=== PATIENT | male | born 1955 | race Caucasian/White ===

== ENCOUNTER → 2020-09-08 18:14 | Outpatient (CLI) | payer MEDICARE, SELFPAY ==
[2020-09-08 19:32] LABS: Basophils % 0.3 % (0.1-2.0); Eosinophils % 0.1 % (0.1-12.0); Hemoglobin 15.8 g/dL (14.1-18.0); Lymphocytes # 0.8 K/mm3 (0.7-4.5); Lymphocytes % 12.7 % (10-50); Mean Corpuscular Hemoglobin 31.6 pg (27.0-31.2); Mean Corpuscular Volume 95.9 fl (80-94); Mean Platelet Volume 9.3 fl (7.4-10.4); Monocytes # 0.3 K/mm3 (0.1-1.0); Monocytes % 5.1 % (1.7-9.3); Neutrophils # 5.2 K/mm3 (1.8-7.8); Neutrophils % 81.8 % (37.0-80.0); Platelet Count 204 K/mm3 (142-424); Red Blood Count 5.01 M/mm3 (4.60-6.20); Red Cell Distribution Width 14.7 % (11.5-17.5); White Blood Count 6.4 K/mm3 (4.8-10.8)
[2020-09-08 19:46] LABS: Alanine Aminotransferase 23 U/L (12-78); Albumin Level 4.2 g/dl (3.5-5.0); Albumin/Globulin Ratio 1.8 (1.1-1.8); Alkaline Phosphatase 80 U/L (38-126); Anion Gap 16.6 mEq/L (5-15); Aspartate Amino Transferase 22 U/L (17-59); Bilirubin,Total 0.7 mg/dl (0.2-1.3); Blood Urea Nitrogen 16 mg/dl (9-20); Carbon Dioxide 24 mmol/L (22.0-30.0); Chloride 103 mmol/L (98-107); Chol/HDL Ratio 3.6 (1-3.5); Cholesterol 130 mg/dl (140-200); Estimated Glomerular Filt Rate 96 ml/min (>60); GFR (African American) 117 ML/MIN (>60); Globulin 2.3 g/dL (1.3-3.2); Glucose 147 mg/dl (74-100); HDL Cholesterol 36 mg/dl (40-60); Potassium 4.6 mmoL/L (3.5-5.1); Sodium 139 mmol/L (136-145); Total Protein,Serum 6.5 g/dl (6.3-8.2); Triglycerides 245 mg/dl (30-150); VLDL Cholesterol 49 mg/dL (0-40)
[2020-09-08 19:57] LABS: Direct LDL Cholesterol 69.76 mg/dL (100-129)
== END ==
PROVIDERS: Visit Provider Internal Medicine Adolescent Medicine
DX: I25.10 Atherosclerotic heart disease of native coronary artery without angina pectoris (principal); I10 Essential (primary) hypertension
CPT/HCPCS: 80053; 80061; 85025

== ENCOUNTER → 2021-03-23 13:12 | Outpatient (CLI) | payer MEDICARE, OTHER, SELFPAY ==
--- NOTE | 2021-03-23 13:31 | XR_ITS ---
FINAL REPORT CLINICAL HISTORY: RIGHT SHOULDER PAIN for 1 month, no known injury FINDINGS: RIGHT SHOULDER Three views demonstrate no acute fracture or dislocation. There are [id number] hypertrophic changes of the acromioclavicular joint. The soft tissues are unremarkable. IMPRESSION: Mild to moderate hypertrophic changes of the acromioclavicular joint. Reviewed, Interpreted and Dictated by Reji Weinberg MD Transcribed by Nicolasa Woodard Authenticated by Reji Weinberg MD on 03/23/2021 03:39:01 PM [facility]
--- NOTE | 2021-03-23 13:31 | XR_ITS ---
FINAL REPORT CLINICAL HISTORY: LEFT SHOULDER PAIN for 1 month, no known injury FINDINGS: LEFT SHOULDER 3 views of the left shoulder were obtained. There is no acute fracture or dislocation. There are minimal hypertrophic changes at the glenohumeral joint. There is osteophyte formation along the undersurface of the acromion. Soft tissues are unremarkable. IMPRESSION: Hypertrophic changes as described. Reviewed, Interpreted and Dictated by Reji Weinberg MD Transcribed by Nicolasa Woodard Authenticated by Reji Weinberg MD on 03/23/2021 03:39:[address] [facility]
== END ==
PROVIDERS: PCP Internal Medicine Adolescent Medicine; Visit Provider Internal Medicine Adolescent Medicine
DX: M25.512 Pain in left shoulder (principal); M25.511 Pain in right shoulder
CPT/HCPCS: 73030

== ENCOUNTER 2021-06-30 11:00 | Outpatient (RCR) | payer MEDICARE, OTHER, SELFPAY | END 2021-07-30 12:09 | disposition home or self-care (01) | LOC: PT.CARL 11:00 | PROVIDERS: PCP Internal Medicine Adolescent Medicine; Visit Provider Family Medicine | DX: M19.012 Primary osteoarthritis, left shoulder (principal); M19.011 Primary osteoarthritis, right shoulder | CPT/HCPCS: 97110; 97163 ==

== ENCOUNTER 2021-11-25 22:57 | Emergency (ER) | payer MEDICARE, OTHER, SELFPAY ==
[2021-11-25 22:59] VITALS: BP 129/87; PULSE 71; RESP 18; TEMP 36.6; O2SAT 95; BMI 26.3
--- NOTE | 2021-11-26 00:08 | HMH.EDABDPAI ---
Discharge Plan Disposition Chief Complaint: Abdominal Pain Prescriptions Prescriptions: No Action atorvastatin 80 mg tablet 80 mg PO DAILY azathioprine 50 mg tablet 50 mg PO DAILY valacyclovir 500 mg tablet 500 mg PO TID Label Comments: TAKE 1 TABLET 3 TIMES EACH DAY FOR 7 DAYS lisinopril 5 mg tablet 5 mg PO DAILY gabapentin 100 mg capsule 100 mg PO TID Label Comments: TAKE 1 CAPSULE 3 TIMES EACH DAY FOR PAIN mesalamine 1,000 mg suppository 1,000 mg [place] HS mesalamine 800 mg tablet,delayed release (DR/EC) See Rx Instructions .ROUTE .COMPLEX Rx Instructions: take (3) tab in morning and (2) tab at bedtime Referrals Follow up/Referrals: Shoaib Hernandez MD [Primary Care Provider] - See instructions Clinical Impressions Clinical Impression: Abdominal pain Instructions Patient Instructions: DI for Acute Abdominal Pain, Acute Abdominal Pain Discharge ED Provider: Christopher Shook Abdominal Pain HPI General Chief Complaint: Abdominal Pain Stated Complaint: bruised and sharp pain in adm no accident Time Seen by Provider: 11/26/21 00:08 Mode of Arrival: Family Vehicle Source of Information: Patient and Medical Record Limitations: No Limitations Description of Symptoms (Recalled from ER Triage Doc. by RN): Pt c/o RLQ ABD pain that sometimes radiates to R lower back. States he was dx with Shingles to this area 1 wk ago. Pt denies any previous abd surgeries. Pt has completed his course of acyclovir but the gabapentin isn't cutting this pain now . Pt & his concerned that pt's abd is distended and swollen . Denies any n/v/d. ABD is soft. Mild tenderness noted on palpation. Denies fever or chills. History of Present Illness HPI narrative: acute onset of rt flank pain noted today - has hx of recent shingles complaint: flank pain Onset (ago): day(s) Consistency: constant Location: RLQ Severity: moderate Radiation: R flank Associated symptoms: denies other symptoms Related Data Home Medications Medication Instructions Recorded Confirmed atorvastatin 80 mg tablet 80 mg PO DAILY High cholesterol 11/25/21 11/26/21 azathioprine 50 mg tablet 50 mg PO DAILY . 11/25/21 11/26/21 gabapentin 100 mg capsule 100 mg PO TID shingles pain 11/25/21 11/26/21 lisinopril 5 mg tablet 5 mg PO DAILY High blood pressure 11/25/21 11/26/21 mesalamine 1,000 mg rectal 1,000 mg [place] HS UC 11/25/21 11/26/21 suppository mesalamine 800 mg tablet,delayed See Rx Instructions .Route 11/25/21 11/26/21 release .COMPLEX UC valacyclovir 500 mg tablet 500 mg PO TID shingles for 1 wk 11/25/21 11/26/21 Allergies Allergy/AdvReac Type Severity Reaction Status Date / Time No Known Allergies Allergy Verified 11/25/21 23:59 PFSH PFSH Social History Smoking Status: Never smoker alcohol intake: never current occupational status: employed Travel in the last 8 weeks: None ROS Obtained: Yes All systems reviewed & no additional complaints except as documented Physical Exam General General appearance: alert Head Head exam: normocephalic Eye Eye exam: Present PERRL and EOMI ENT ENT exam: Present mucous membranes moist Neck Neck exam: Present trachea midline Respiratory Respiratory exam: Present normal lung sounds bilaterally Cardiovascular Cardiovascular exam: Present regular rate Abdominal Exam Abdominal exam: Present soft and other (sl distention rt flank ) Extremities Exam Extremities exam: Present full ROM Back Exam Back exam: Absent CVA tenderness (R) Neurological Exam Neurological exam: Present alert, oriented X3 and CN II-XII intact Psychiatric Psychiatric exam: Present normal affect Skin Skin exam: Present rash (resolving shingles ) Medical Decision Making Medical Records Medical records reviewed: Yes I reviewed the patient's medical records. Tyshawn Inquiry Pt receiving controlled substance: No Vital Signs: 11/25/21 22:59 Temperature
--- NOTE | 2021-11-26 00:11 | CT_ITS ---
PROCEDURE INFORMATION: Exam: CT Abdomen And Pelvis With Contrast Exam date and time: 11/26/2021 12:56 AM Age: 66 years old Clinical indication: Abdominal pain; Patient HX: PT C/O rlq/right flank pain; Additional info: Rlq adb pain TECHNIQUE: Imaging protocol: Computed tomography of the abdomen and pelvis with contrast. Radiation optimization: All CT scans at this facility use at least one of these dose optimization techniques: automated exposure control; mA and/or kV adjustment per patient size (includes targeted exams where dose is matched to clinical indication); or iterative reconstruction. Contrast material: ISOVUE; Contrast volume: 75 ml; Contrast route: IV; COMPARISON: No relevant prior studies available. FINDINGS: Lungs: Calcified granulomas within the hilar structures and lung bases measuring less than 1 cm in size. Scarring and atelectasis in the lung bases. Heart: Heart is upper limits normal in size. Diaphragm: Sliding hiatal hernia. Liver: Liver is diffusely hypoattenuating. Low-density lesions in the left lobe of the liver may be benign or malignant. There are no comparison studies and follow-up is recommended. Punctate calcified granulomas within the liver. Gallbladder and bile ducts: Normal. No calcified stones. No ductal dilation. Pancreas: Normal. No ductal dilation. Spleen: Punctate calcified granulomas within the otherwise unremarkable spleen. Adrenal glands: Normal. No mass. Kidneys and ureters: Multiple Bosniak 1 cysts are identified in the kidneys. No additional workup for Bosniak 1 cysts is recommended. Stomach and bowel: A few prominent loops of small bowel within the left lower quadrant and pelvis exceed 3 cm and there is some fecalization of the small bowel contents. Early or mild mechanical obstruction cannot be entirely excluded. There is excessive stool within the cecum and ascending colon. Diverticulosis of the distal colon is minimal. There is no evidence of diverticulitis. Appendix: The appendix is not identified. There are no secondary signs of appendicitis. Intraperitoneal space: Unremarkable. No free air. No significant fluid collection. Vasculature: Calcifications of thoracic aorta and coronary arteries. There are calcifications within the abdominal aorta and its branches. Lymph nodes: Unremarkable. No enlarged lymph nodes. Urinary bladder: Unremarkable as visualized. Reproductive: Unremarkable as visualized. Bones/joints: Diffuse degenerative disc and facet disease result in multilevel central and foraminal stenosis within the lower lumbar spine. Soft tissues: Fat containing right greater than left inguinal hernias. IMPRESSION: 1. A few prominent loops of small bowel within the left lower quadrant and pelvis exceed 3 cm and there is some fecalization of the small bowel contents. Early or mild mechanical obstruction cannot be entirely excluded. Follow-up with small-bowel follow-through. 2. Excessive stool within the cecum and ascending colon. 3. Appendix is not identified. There are no secondary signs of appendicitis. 4. Multiple Bosniak 1 cysts are identified in the kidneys. No additional workup for Bosniak 1 cysts is recommended. 5. Liver is diffusely hypoattenuating. 6. 1 cm low-density lesion in the left lobe of the liver may be benign or malignant. There are no comparison studies and follow-up is recommended. 7. Diverticulosis of the distal colon is minimal. There is no evidence of diverticulitis. 8. Fat containing right greater than left inguinal hernias. 9. Diffuse degenerative disc and facet disease result in multilevel central and foraminal stenosis within the lower lumbar spine.
[2021-11-26 00:36] LABS: Microscopic, Urine URINE MICROSCOPIC (MICROSCOPIC)
[2021-11-26 00:39] LABS: Appearance,Urine CLEAR (Clear); Bilirubin,Urine Negative (Negative); Blood, Urine Negative (Negative); Color,Urine YELLOW (Yellow); Glucose,Urine (UA) Negative (Negative); Ketones,Urine Negative (Negative); Leukocyte Esterase,Urine Negative (Negative); Nitrate,Urine Negative (Negative); Protein,Urine Negative (Negative); Specific Gravity, Urine >= 1.030 (1.005-1.030); Urobilinogen,Urine 0.2 EU/dl (0.2)
[2021-11-26 00:45] LABS: Basophils # 0.1 K/mm3 (0-0.2); Basophils % 1.6 % (0.1-2.0); Eosinophils # 0.1 K/mm3 (0.0-0.4); Eosinophils % 1.1 % (0.1-12.0); Hematocrit 48.5 % (42.0-52.0); Hemoglobin 15.9 g/dL (14.1-18.0); Lymphocytes % 15.1 % (10-50); Mean Corpuscular HGB Conc 32.7 g/dL (31.8-35.4); Mean Corpuscular Hemoglobin 31.6 pg (27.0-31.2); Mean Corpuscular Volume 96.7 fl (80-94); Mean Platelet Volume 7.9 fl (7.4-10.4); Monocytes # 0.4 K/mm3 (0.1-1.0); Monocytes % 6.3 % (1.7-9.3); Neutrophils # 4.9 K/mm3 (1.8-7.8); Neutrophils % 75.9 % (37.0-80.0); Platelet Count 231 K/mm3 (142-424); Red Blood Count 5.02 M/mm3 (4.60-6.20); Red Cell Distribution Width 14.8 % (11.5-17.5); White Blood Count 6.5 K/mm3 (4.8-10.8)
[2021-11-26 00:50] LABS: Chloride 100 mmol/L (98-107); Potassium 4.8 mmoL/L (3.5-5.1); Sodium 138 mmol/L (136-145)
[2021-11-26 00:53] LABS: Alanine Aminotransferase 32 U/L (12-78); Albumin Level 4.6 g/dl (3.5-5.0); Albumin/Globulin Ratio 1.8 (1.1-1.8); Alkaline Phosphatase 69 U/L (38-126); Anion Gap 14.8 mEq/L (5-15); Aspartate Amino Transferase 37 U/L (17-59); Bilirubin,Total 0.5 mg/dl (0.2-1.3); Blood Urea Nitrogen 20 mg/dl (9-20); Carbon Dioxide 28 mmol/L (22.0-30.0); Creatinine Clearance Estimated 93 mL/min (50-200); Estimated Glomerular Filt Rate 96 ml/min (>60); GFR (African American) 116 ML/MIN (>60); Globulin 2.6 g/dL (1.3-3.2); Total Protein,Serum 7.2 g/dl (6.3-8.2)
[2021-11-26 00:54] LABS: Bacteria,Urine Trace /lpf; Calcium 9.2 mg/dl (8.4-10.2); Glucose 119 mg/dl (74-100); WBC,Urine Occasional #/hpf (0-3)
[2021-11-26 02:47] VITALS: BP 150/85; PULSE 85; RESP 18; TEMP 36.8; O2SAT 98
== END 2021-11-26 02:50 | disposition home or self-care (01) ==
PROVIDERS: Emergency Provider Emergency Medicine; PCP Internal Medicine Adolescent Medicine
DX: R10.9 Unspecified abdominal pain (principal); Z79.899 Other long term (current) drug therapy
CPT/HCPCS: 74177; 80053; 81001; 85025; 96374; 99284; Q9967

== ENCOUNTER → 2021-12-24 08:48 | Outpatient (POV) | payer MEDICARE, OTHER, SELFPAY ==
[2021-12-24 09:28] VITALS: BP 136/75; PULSE 84; RESP 18; TEMP 37.1; O2SAT 97; BMI 26.3
--- NOTE | 2021-12-24 11:56 | EXP.PAIN.OV ---
HPI Data of Consult Patient: new to practice Consult date: 12/24/21 Requesting Physician: Zoila Barroso APRN Primary Care Provider: Shoaib Hernandez MD Consult Narrative Reason for consult: Right side abdomen shingles History of present illness: Mr. Foote is a 66 year old male who presents today as a new patient. He is a referral from Dr. Barron's office. Today the patient rates his pain a 8 out of 10. He states the pain is all along his right abdomen on the side that radiates into his mid back. Patient states this started approximately about a month ago. Patient states he did have some pain prior to the actual rash coming about. Patient states it was about 1 week before he felt funny as if he had a bruised rib. Patient states then he had sharp knifelike sensations in his back and had a rash with lesions appear at his mid back radiating towards his right mid abdomen. Patient states that his pain has improved and does feel like his rash has significantly improved however he still has significant pain with vibrations such as riding in a car. Patient states he was told by his mother that he had shingles as a child. Patient has not had the shingles vaccine. Patient also states he has had abnormal swelling on the right side of his abdomen. He states he has had CT scans that were negative for any abnormal findings. Patient was prescribed Valtrex by his primary care doctor. He was also given gabapentin 100 mg 3 times a day and tramadol 50 mg however patient states that neither 1 of these medications improved his symptoms. He states he was later given Corona 7.5 mg however this did not appear to make much difference either. Patient has tried lidocaine patches with minimal improvement of his symptoms. His Tyshawn is [phone]. It has been reviewed and appropriate. CC: Zoila Barroso APRN [facility] Medical History (Updated 12/24/21 @ 12:02 by Zoila Barroso APRN) CAD (coronary artery disease) HLD (hyperlipidemia) HTN (hypertension) Osteoarthritis Social History (Updated 12/24/21 @ 09:33 by Mariella John RN) Smoking Status: Never smoker alcohol intake: never current occupational status: employed Travel in the last 8 weeks: None Review of Systems Review of Systems Review of systems:: pertinent systems reviewed and negative unless documented below Review of systems (narrative): Review of Systems: General: No recent weight changes, no fever, no sleep disturbances Respiratory: No cough, no shortness of air, no recurring pulmonary infections Cardiovascular/peripheral vascular: No chest pain, no palpitations, no edema, no shortness of breath Gastrointestinal: No new onset incontinence, normal bowel movements reported Genitourinary: No new onset incontinence Musculoskeletal: Right abdomen and right back pain due to shingles Psychiatric: [Normal mood/affect] Neurological: [Denies weakness in extremities], [denies balance issues] Meds Home Medications and Allergies Home Medications Medication Instructions Recorded Confirmed Type atorvastatin 80 mg tablet 80 mg PO DAILY High cholesterol 11/25/21 12/24/21 History azathioprine 50 mg tablet 50 mg PO DAILY . 11/25/21 12/24/21 History gabapentin 100 mg capsule 100 mg PO TID shingles pain 11/25/21 12/24/21 History lisinopril 5 mg tablet 5 mg PO DAILY High blood pressure 11/25/21 12/24/21 History mesalamine 1,000 mg rectal 1,000 mg [place] HS UC 11/25/21 12/24/21 History suppository mesalamine 800 mg tablet,delayed See Rx Instructions .Route 11/25/21 12/24/21 History release .COMPLEX UC valacyclovir 500 mg tablet 500 mg PO TID shingles for 1 wk 11/25/21 12/24/21 History New Prescriptions to Start Prescriptions: Allergies Allergy/AdvReac Type Severity Reaction Status Date / Time No Known Allergies Allergy Verified 11/25/21 23:59 Objective Vital signs: Temp Pulse Resp BP Pulse Ox 98.7 F 84 18 136/75 97 12/24/21 09:28 12/24/21 09:28 12/24/21
== END ==
PROVIDERS: PCP Internal Medicine Adolescent Medicine; Visit Provider Nurse Practitioner Family
DX: B02.9 Zoster without complications (principal); R10.9 Unspecified abdominal pain
CPT/HCPCS: 99202; G0463

== ENCOUNTER 2021-12-29 07:53 | Day surgery (SDC) | payer MEDICARE, OTHER, SELFPAY ==
[2021-12-29 08:11] VITALS: BP 134/83; PULSE 95; RESP 18; TEMP 36.4; O2SAT 97; BMI 26.3
[2021-12-29 08:42] VITALS: BP 136/86; PULSE 83; RESP 18; O2SAT 98
--- NOTE | 2021-12-29 08:42 | EXP.PAIN.PRO ---
Procedure Date: 12/29/21 Time: 08:42 Anesthesiologist:: Dev Ogden CRNA Complications:: None Pre-procedure Diagnosis:: Shingles right flank Post-procedure Diagnosis:: Same Indications for Procedure:: Patient is a pleasant 66-year-old male that comes today for repeat right side trigger point injections Marcaine, lidocaine, Depo-Medrol for postherpetic neuralgia. Lesions are healed however, patient still having neuralgia pain. Procedure Details:: Details of the procedure were explained to the patient. The patient was placed in sitting position. The area over the right flank was prepped with chlorhexidine. Using a 25-gauge needle 4 separate areas were injected in a fanning fashion with 0.25% Marcaine +1% lidocaine and 80 mg of Depo-Medrol. 3 to 4 cc was injected at each area. This was after negative aspiration. Patient tolerated procedure without difficulty. There are no complications. Plan and Disposition:: Patient was discharged without incident.
== END 2021-12-29 08:42 | disposition home or self-care (01) ==
PROVIDERS: PCP Internal Medicine Adolescent Medicine; Visit Provider Nurse Anesthetist, Certified Registered
DX: B02.9 Zoster without complications (principal)
CPT/HCPCS: 20552; J1040

== ENCOUNTER → 2022-01-07 08:51 | Outpatient (CLI) | payer MEDICARE, OTHER, SELFPAY ==
--- NOTE | 2022-01-07 08:56 | US_ITS ---
FINAL REPORT CLINICAL HISTORY: RUQ ABNORMAL R SWELLING-- soft tissue mass FINDINGS: ULTRASOUND ABDOMINAL/SOFT TISSUE Sonographic images of the soft tissues of the right upper quadrant were obtained. There is an ovoid, subcutaneous focus measuring 2.2 cm correlating to the palpable area of interest. This is favored to represent a lipoma. IMPRESSION: Probable lipoma correlating to the palpable area of interest. CT or MRI could confirm. Reviewed, Interpreted and Dictated by Reji Weinberg MD Transcribed by Bren Richards Authenticated and . [facility]
== END ==
PROVIDERS: PCP Internal Medicine Adolescent Medicine; Visit Provider Nurse Practitioner Family
DX: R19.03 Right lower quadrant abdominal swelling, mass and lump (principal)
CPT/HCPCS: 76705

== ENCOUNTER → 2022-01-14 08:39 | Outpatient (POV) | payer MEDICARE, OTHER, SELFPAY ==
[2022-01-14 08:52] VITALS: BP 124/82; PULSE 80; RESP 18; O2SAT 96; BMI 26.3
--- NOTE | 2022-01-14 09:06 | EXP.PAIN.SOA ---
[facility] Pain Management SOAP Note Subjective:: Patient is a pleasant 66-year-old male who presents today for follow-up of trigger point injections into his right flank on 12/29/2021. We are currently treating the patient for abdominal pain, acute shingles. Today he rates his pain a 0 out of 10. Patient states he does feel like the injections provided additional improvement of his symptoms. At our prior visit he stated he had more pain when riding in vehicles due to the vibrations. Today he states this has improved however he does still notice the pain when he has had a long day of driving or occasionally when lifting. Patient also had a palpable mass along his right flank that became noticeable during his shingles outbreak. Patient does state occasionally he does have pain at this location however he does state it seems to have shrunk somewhat. We did order a ultrasound at the last visit. Patient had already had a CT scan that was negative for any abnormal findings. Patient was prescribed gabapentin 100 mg 3 times a day and tramadol 50 mg however this did not improve his symptoms as well as Percocet 7.5 mg 4 times a day. Patient is not currently taking these medications. His Tyshawn is [phone]. It is been reviewed and appropriate. Review of Systems: General: No recent weight changes, no fever, no sleep disturbances Respiratory: No cough, no shortness of air, no recurring pulmonary infections Cardiovascular/peripheral vascular: No chest pain, no palpitations, no edema, no shortness of breath Gastrointestinal: No new onset incontinence, normal bowel movements reported Genitourinary: No new onset incontinence Musculoskeletal: Right abdomen pain Psychiatric: [Normal mood/affect] Neurological: [Denies weakness in extremities], [denies balance issues] Objective:: Physical Exam: General: Alert and oriented x3, no acute distress, pleasant and cooperative Lungs: Respirations even and unlabored, symmetrical chest expansion Eyes: PERRL Musculoskeletal: Flexion and extension of thoracic [spine] somewhat guarded secondary to pain, [antalgic gait noted] Neurological: Speech clear, no gross sensory deficit FINDINGS: ULTRASOUND ABDOMINAL/SOFT TISSUE? Sonographic images of the soft tissues of the right upper quadrant were obtained.? There is an ovoid, subcutaneous focus measuring 2.2 cm correlating to the palpable area of interest.? This is favored to represent a lipoma. IMPRESSION: Probable lipoma correlating to the palpable area of interest. CT or MRI could confirm. Reviewed, Interpreted and Dictated by Reji Weinberg MD Transcribed by Bren Richards Authenticated and [facility] Assessment:: Right abdominal pain, acute shingles Plan:: Patient has had significant improvement of his shingles symptoms however he still continues to have some inflammation at his right flank. Patient's ultrasound did show this to be a probable lipoma with recommendations of a CT or MRI to confirm. I have counseled the patient that we can send him to a general surgeon for referral but at this time he states he is doing okay. Patient may call at any time if he would like us to send this referral in the future. I have counseled the patient to continue to monitor the site for any additional inflammation or worsening pain. At this time the patient will contact us for his next follow-up appointment. Patient has been instructed to contact the clinic with any concerns before the next appointment. Dr. Colunga has reviewed this note and agrees with this plan of care. This note was dictated using voice recognition software and make contain errors or omissions. [facility] Medical History CAD (coronary artery disease) HLD (hyperlipidemia) HTN (hypertension) Osteoarthritis Family History (Updated 12/29/21 @ 08:12 by Joanna Kelly RN) [place]
== END ==
PROVIDERS: PCP Internal Medicine Adolescent Medicine; Visit Provider Nurse Practitioner Family
DX: R10.9 Unspecified abdominal pain (principal); B02.9 Zoster without complications
CPT/HCPCS: 99212; G0463

== ENCOUNTER → 2022-05-19 07:11 | Outpatient (CLI) | payer MEDICARE, OTHER, SELFPAY ==
--- NOTE | 2022-05-19 | CA_ITS ---
APPROVED REPORT Exam: Exercise Treadmill Technologist: Juliet High Ht: 6 ft 2 in Wt: 267 lbs BSA: 2.46 m2 HR: 77 bpm BP: 135/74 mmHg Indications: CAD Medical History Medications: Lisinopril,,,,, Aspirin,,,,, Atorvastatin,,,,, Multivitamin,,,,, MesALAMINE,,,,, TUmeric,,,,, Aszathiaprine,,,,, Stress Test Details Test: Torito HR Resting HR: 87 bpm Max Heart Rate (APMHR): 151.404693 bpm Max HR Achieved: 132 bpm Target HR (85% APMHR): 128.401133 bpm % of APMHR: 87.42 Recovery HR: 83 bpm BP Resting BP: 135.0/74.0 mmHg Max BP: 206.0/78.0 mmHg Recovery BP: 138.0/86.0 mmHg ECG Resting ECG: Normal sinus rhythm, old septal VT, ST abnormalities in leads III, aVF, PVC. Clinical Exercise duration: 07:00 min Highest Stage Achieved: Exercise capacity: 10.1 METs Stress ECG Conclusion Patient walked 7:00 on Torito Protocol. Test stopped due to shortness of air, fatigue. Symptoms: No chest pain. Arrhythmias/Ectopy: Occasional PAC and PVC ST-T Changes: 0.5 - [address] depression in lead V6. Exaggeration of baseline ST abnormalities in leads III and aVF with approximately 1 mm of horizontal and upsloping ST depression. Conclusion: Equivocal EKG changes. No imaging. Test Summary REST . . . . . . . Sitting REST . . . . . . . Standing REST 03:53 0.0 0.0 87 . 135/ 74 . . Stage 1 01:00 10.0 1.7 96 . . . . Stage 1 02:00 10.0 1.7 105 . . . . Stage 1 03:00 10.0 1.7 105 . 184/ 78 . . Stage 2 01:00 12.0 2.5 118 . . . . Stage 2 02:00 12.0 2.5 121 . . . . Stage 2 03:00 12.0 2.5 122 . 206/ 78 . . Stage 3 01:00 14.0 3.4 131 . . . Stop exercise at 07:00 RECOVERY 01:00 0.0 0.0 109 . . . . RECOVERY 02:00 0.0 0.0 88 . . . . RECOVERY 03:00 0.0 0.0 84 . 150/ 90 . . RECOVERY 04:00 0.0 0.0 86 . 153/ 85 . . RECOVERY 05:00 0.0 0.0 85 . 153/ 85 . . RECOVERY 05:42 0.0 0.0 83 . 138/ 86 . . Electronically signed by : Shoaib Hernandez MD 05/21/2022 16:32:11
--- NOTE | 2022-05-19 07:27 | XR_ITS ---
FINAL REPORT TECHNIQUE: Chest PA & Lateral CLINICAL HISTORY: COUGH COMPARISON: none FINDINGS: 2 views of the chest were performed. The heart size is normal. The mediastinum is within normal limits. There is no acute cardiopulmonary process. There are no pleural effusions. There is no pneumothorax. The bony thorax appears intact. IMPRESSION: No acute cardiopulmonary process. Reviewed, Interpreted and Dictated by Reji Weinberg MD Transcribed by Aletha Sosa Authenticated and . [facility]
[2022-05-19 07:44] LABS: Basophils # 0.1 K/mm3 (0-0.2); Basophils % 1.5 % (0.1-2.0); Eosinophils # 0.1 K/mm3 (0.0-0.4); Eosinophils % 1.1 % (0.1-12.0); Hematocrit 48.8 % (42.0-52.0); Hemoglobin 15.9 g/dL (14.1-18.0); Lymphocytes # 0.9 K/mm3 (0.7-4.5); Mean Corpuscular HGB Conc 32.5 g/dL (31.8-35.4); Mean Corpuscular Volume 95.4 fl (80-94); Mean Platelet Volume 8.5 fl (7.4-10.4); Monocytes # 0.5 K/mm3 (0.1-1.0); Monocytes % 9.5 % (1.7-9.3); Neutrophils # 3.6 K/mm3 (1.8-7.8); Neutrophils % 70.9 % (37.0-80.0); Platelet Count 200 K/mm3 (142-424); Red Blood Count 5.12 M/mm3 (4.60-6.20); White Blood Count 5.1 K/mm3 (4.8-10.8)
[2022-05-19 08:04] LABS: Alanine Aminotransferase 24 U/L (12-78); Albumin Level 4.4 g/dl (3.5-5.0); Alkaline Phosphatase 84 U/L (38-126); Anion Gap 10.6 mEq/L (5-15); Aspartate Amino Transferase 26 U/L (17-59); Bilirubin,Total 0.8 mg/dl (0.2-1.3); Blood Urea Nitrogen 17 mg/dl (9-20); Calcium 9.1 mg/dl (8.4-10.2); Carbon Dioxide 29 mmol/L (22.0-30.0); Chloride 102 mmol/L (98-107); Chol/HDL Ratio 2.7 (1-3.5); Cholesterol 115 mg/dl (140-200); Estimated Glomerular Filt Rate 112 ml/min (>60); GFR (African American) 135 ML/MIN (>60); Globulin 2.2 g/dL (1.3-3.2); Glucose 107 mg/dl (74-100); HDL Cholesterol 43 mg/dl (40-60); Potassium 4.6 mmoL/L (3.5-5.1); Sodium 137 mmol/L (136-145); Total Protein,Serum 6.6 g/dl (6.3-8.2); Triglycerides 87 mg/dl (30-150); VLDL Cholesterol 17 mg/dL (0-40)
[2022-05-19 08:16] LABS: Direct LDL Cholesterol 64.73 mg/dL (100-129)
[2022-05-19 08:36] LABS: Prostate Specific Ag Screen 1.1 ng/ml (0.0-4.0)
== END ==
PROVIDERS: PCP Internal Medicine Adolescent Medicine; Visit Provider Internal Medicine Adolescent Medicine
DX: Z00.00 Encounter for general adult medical examination without abnormal findings (principal); I25.10 Atherosclerotic heart disease of native coronary artery without angina pectoris; E78.5 Hyperlipidemia, unspecified; Z12.5 Encounter for screening for malignant neoplasm of prostate
CPT/HCPCS: 36415; 71046; 80053; 80061; 85025; 93017; G0103